=== PATIENT | male | born 1990 | race Caucasian/White ===

== ENCOUNTER 2021-07-23 10:00 | Emergency (ER) | payer MEDICAID, OTHER ==
[2021-07-23 10:38] LABS: BASOPHILS % (AUTO) 0.4 %; EOSINOPHILS # (AUTO) 0.1 10^3/uL (0.0-0.7); EOSINOPHILS % (AUTO) 1.9 %; HCT - HEMATOCRIT 40.9 % (42.0-52.0); HGB - HEMOGLOBIN 13.1 g/dL (14.0-18.0); LYMPHOCYTES # (AUTO) 1.6 10^3/uL (1.5-3.5); LYMPHOCYTES % (AUTO) 34.1 %; MEAN CORPUSCULAR HEMOGLOBIN 26.7 pg (27.0-31.0); MEAN CORPUSCULAR VOLUME 83.3 fL (80.0-94.0); MEAN PLATELET VOLUME 10.9 fL (7.4-11.4); MONOCYTES # (AUTO) 0.4 10^3/uL (0.0-1.0); MONOCYTES % (AUTO) 8.6 %; NEUTROPHILS # (AUTO) 2.6 10^3/uL (1.5-6.6); NEUTROPHILS % (AUTO) 54.8 %; PLT - PLATELET COUNT 235 10^3/uL (130-450); RED BLOOD COUNT 4.91 10^6/uL (4.70-6.10); RED CELL DISTRIBUTION WIDTH 12.8 % (12.0-15.0); WHITE BLOOD COUNT 4.8 x10^3/uL (4.8-10.8)
[2021-07-23 10:54] LABS: ALBUMIN 4.4 g/dL (3.2-5.5); ALBUMIN/GLOBULIN RATIO 1.5 (1.0-2.2); BILIRUBIN,TOTAL 1.2 mg/dL (0.2-1.0); CREATININE 0.9 mg/dL (0.6-1.2); TOTAL PROTEIN 7.3 g/dL (6.7-8.2)
--- NOTE | 2021-07-23 10:56 | XRAY Report ---
PROCEDURE: Chest 1 View X-Ray INDICATIONS: Chest Pain TECHNIQUE: One view of the chest was acquired. COMPARISON: None FINDINGS: Surgical changes and devices: None. Lungs and pleura: No pleural effusions or pneumothorax. Lungs are clear. Mediastinum: Mediastinal contours appear normal. Heart size is normal. Bones and chest wall: No suspicious bony lesions. Overlying soft tissues appear unremarkable. IMPRESSION: No evidence acute pulmonary process. Reviewed by: Albino Chow MD on 07/23/2021 10:55 AM PDT Approved by: Albino Chow MD on 07/23/2021 10:55 AM PDT Station ID: [id number]
[2021-07-23 11:24] VITALS: BP 117/67
--- NOTE | 2021-07-23 11:31 | ED Physician Documentation ---
PD HPI CHEST PAIN - Stated complaint Stated Complaint: CHEST PX - Chief complaint Chief Complaint: Cardiac - History obtained from History obtained from: Patient - History of Present Illness Timing - onset: Today Timing - onset during: Sleep Timing - duration: Days (1) Pain level max: 6 Pain level now: 3 Quality: Pressure, Sharp Location: Substernal Radiation: No: Jaw, Neck, Back, Abdominal, Left upper extremity, Right upper extremity Associated symptoms: No: Shortness of air, Diaphoresis, Nausea, Vomiting, Feeling faint / dizzy, General Weakness, Palpitations, Cough Similar symptoms before: Has not had sx before - Additional information Additional information: Patient is a 30-year-old male who presents to the emergency department stating that he developed pain in the center of his chest last night, worse with movement, worse with breathing. Described as sharp with palpation, otherwise a dull aching pressure. Nonradiating. 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 No recent travel. No recent surgery. No fever. Review of Systems Constitutional: denies: Fever, Chills Throat: denies: Sore throat Cardiac: denies: Palpitations Respiratory: denies: Dyspnea GI: denies: Abdominal Pain, Nausea, Vomiting, Diarrhea Skin: denies: Rash Musculoskeletal: denies: Neck pain, Back pain Neurologic: denies: Headache PD PAST MEDICAL HISTORY - Past Medical History Past Medical History: Yes Other Past Medical History: chronic uvula/tonsillar pain for several years. - Past Surgical History Past Surgical History: No - Present Medications Home Medications: Ambulatory Orders Medication Instructions Recorded Confirmed No Known Home Medications 07/23/21 07/23/21 - Allergies Allergies/Adverse Reactions: Allergies Allergy/AdvReac Type Severity Reaction Status Date / Time acetaminophen Allergy Hives Verified 07/23/21 10:07 Fish Containing Products Allergy Edema Verified 07/23/21 10:08 - Social History Does the pt smoke?: No Smoking Status: Never smoker Does the pt drink ETOH?: No Substance Use and Type: Marijuana PD ED PE NORMAL - Vitals Vital signs reviewed: Yes - General General: Alert and oriented X 3, No acute distress - HEENT HEENT: Moist mucous membranes - Neck Neck: Supple, no meningeal sign - Cardiac Cardiac: RRR, Strong equal pulses - Respiratory Respiratory: No respiratory distress, Clear bilaterally - Abdomen Abdomen: Soft, Non tender, Non distended - Derm Derm: Warm and dry - Extremities Extremities: No edema, No calf tenderness / cord - Neuro Neuro: Alert and oriented X 3 - Psych Psych: Normal mood, Normal affect Results - Vitals Vitals: Vital Signs - 24 hr 07/23/21 07/23/21 07/23/21 10:03 10:30 11:00 Temperature 36.2 C L Heart Rate 68 63 58 L Respiratory 16 16 16 Rate Blood Pressure 141/89 H 113/76 117/67 O2 Saturation 100 98 98 Oxygen O2 Source Room air - EKG (time done) 1011 Rate: Rate (enter#) (63) Rhythm: NSR [place]: Normal Intervals: Normal [place] QRS: Normal Ischemia: Normal ST segments - Labs Labs: Laboratory Tests 07/23/21 07/23/21 07/23/21 10:33 10:33 10:33 WBC 4.8 RBC 4.91 Hgb 13.1 L Hct 40.9 L MCV 83.3 MCH 26.7 L MCHC 32.0 RDW 12.8 Plt Count 235 MPV 10.9 Neut # (Auto) 2.6 Lymph # (Auto) 1.6 [place] # (Auto) 0.4 Eos # (Auto) 0.1 Baso # (Auto) 0.0 Absolute Nucleated RBC 0.00 Nucleated RBC % 0.0 Sodium 136 Potassium 4.0 Chloride 101 Carbon Dioxide 25 Anion Gap 10.0 BUN 15 Creatinine 0.9 Estimated GFR (MDRD) 100 Glucose 100 Calcium 9.0 Total Bilirubin 1.2 H AST 21 ALT 16 Alkaline Phosphatase 62 Troponin I High Sens < 2.3 L Total Protein 7.3 Albumin 4.4 Globulin 2.9 Albumin/Globulin Ratio 1.5 Lipase 28 - Rads (name of study) cxr Radiology: Final report received, EMP read contemporaneously, See rad report (No acute abnormality) PD MEDICAL DECISION MAKING - ED course Complexity details: reviewed results, re-evaluated patient, considered differential (No ST elevation [place], no aortic dissection, no PE, no tension pneumothorax, no aortic aneurysm), d/w patient ED course: 30-year-old male presents to the emergency department with chest pain. Appears to be musculoskeletal. Reproducible with palpation. Reproducible with movement. No acute findings on EKG, laboratory testing or chest x-ray. No risk factor for PE. We will continue supportive care and have him follow-up with his doctor. Patient counseled regarding signs and symptoms for which I believe and urgent re-evaluation would be necessary. Patient with good understanding of and agreement to plan and is comfortable going home at this time This document was made in part using voice recognition software. While efforts are made to proofread this document, sound alike and grammatical errors may occur. Departure - Departure Disposition: 01 Home, Self Care Clinical Impression: Chest wall pain Condition: Good Instructions: ED Chest Pain Atypical Unkn Cause, ED Chest Pain Costochondritis Follow-Up: your,doctor in 1 week [Other] Comments: Use Motrin as needed for pain. Follow-up with your doctor for further care. Return if you worsen.
== END 2021-07-23 11:49 | disposition home or self-care (01) ==
LOC: ED 10:00
DX: R07.89 Other chest pain (principal); Z03.818 Encounter for observation for suspected exposure to other biological agents ruled out
CPT/HCPCS: 36415; 80053; 83690; 84484; 85025; 93005; 99284

== ENCOUNTER 2022-09-27 11:44 | Emergency (ER) | payer OTHER ==
[2022-09-27 13:40] LABS: BASOPHILS % (AUTO) 0.3 %; EOSINOPHILS # (AUTO) 0.1 10^3/uL (0.0-0.7); EOSINOPHILS % (AUTO) 0.9 %; HGB - HEMOGLOBIN 14.5 g/dL (14.0-18.0); LYMPHOCYTES # (AUTO) 1.3 10^3/uL (1.5-3.5); LYMPHOCYTES % (AUTO) 22.1 %; MEAN CORPUSCULAR HEMOGLOBIN 28.9 pg (27.0-31.0); MEAN CORPUSCULAR HGB CONC 33.7 g/dL (32.0-36.0); MEAN CORPUSCULAR VOLUME 85.8 fL (80.0-94.0); MEAN PLATELET VOLUME 10.8 fL (7.4-11.4); MONOCYTES # (AUTO) 0.5 10^3/uL (0.0-1.0); MONOCYTES % (AUTO) 9.2 %; NEUTROPHILS # (AUTO) 3.9 10^3/uL (1.5-6.6); NEUTROPHILS % (AUTO) 67.2 %; PLT - PLATELET COUNT 251 10^3/uL (130-450); RED BLOOD COUNT 5.01 10^6/uL (4.70-6.10); RED CELL DISTRIBUTION WIDTH 12.2 % (12.0-15.0); WHITE BLOOD COUNT 5.9 x10^3/uL (4.8-10.8)
--- NOTE | 2022-09-27 13:52 | ED Physician Documentation ---
PD HPI GI BLEED - Stated complaint Stated Complaint: MALE GI - Chief complaint Chief Complaint: Abd Pain - History obtained from History obtained from: Patient - Additional information Additional information: The patient comes emergency department with chief complaint of bright red blood per rectum intermittently for the last year after being diagnosed with hemorrhoids. The patient states the bleeding usually starts after he has his bowel movement in the morning and sometimes stops quickly and other times, continues on and soaks through his underwear and pants. The patient states he is ruined most of his close because of this. He has not been seen anytime recently for the hemorrhoids. He at one time was on Anusol HC suppositories which he said did help, but then he ran out and never went and got anymore. The patient states that he is here today because he had bleeding lasting longer than usual and he is just frustrated that this keeps going on. He denies any lightheadedness, shortness of breath, or chest pain. He denies any coagulation disorders. No anal or rectal trauma. The patient's other concern is that he feels that because of the hemorrhoid, his anus does not seal properly, so sometimes he will have leakage of fluid from his anus onto his underwear. The patient states that right now, he is having a panic attack because he hates coming to the doctor and because he is so scared about the bleeding. No other complaints at this time. Review of Systems Ten Systems: 10 systems reviewed and negative Constitutional: reports: Reviewed and negative Eyes: reports: Reviewed and negative Ears: reports: Reviewed and negative Nose: reports: Reviewed and negative Throat: reports: Reviewed and negative Cardiac: reports: Reviewed and negative Respiratory: reports: Reviewed and negative GI: reports: Bloody / black stool. denies: Abdominal Pain : reports: Reviewed and negative Skin: reports: Reviewed and negative Musculoskeletal: reports: Reviewed and negative Neurologic: reports: Reviewed and negative Psychiatric: reports: Reviewed and negative Endocrine: reports: Reviewed and negative Immunocompromised: reports: Reviewed and negative PD PAST MEDICAL HISTORY - Past Surgical History Past Surgical History: No - Present Medications Home Medications: Ambulatory Orders Medication Instructions Recorded Confirmed HYDROcod/ACETAM 5/325 [[place] 5/325] 1 - 2 tablet PO Q6H PRN #14 tablet 09/27/22 Hydrocortisone Supp [Anusol-Hc] 25 mg [place] Q12H PRN #60 supp 09/27/22 - Allergies Allergies/Adverse Reactions: Allergies Allergy/AdvReac Type Severity Reaction Status Date / Time acetaminophen Allergy Hives Verified 09/27/22 11:59 Fish Containing Products Allergy Edema Verified 09/27/22 11:59 - Social History Does the pt smoke?: No Smoking Status: Never smoker Does the pt drink ETOH?: No PD ED PE NORMAL - Vitals Vital signs reviewed: Yes - General General: Alert and oriented X 3, Well developed/nourished, Other (The patient is visibly anxious, hyperventilating and shaking, pacing in the room.) - HEENT HEENT: Atraumatic, PERRL, EOMI, Moist mucous membranes - Neck Neck: Supple, no meningeal sign - Respiratory Respiratory: No respiratory distress - Abdomen Abdomen: Soft, Non tender, Non distended - Rectal Rectal: Other (1 moderately sized external hemorrhoid and one small 1 noted. There is fresh bloody residue without obvious active bleeding. Moderate tenderness to palpation of the larger hemorrhoid and with digital rectal exam.) - Derm Derm: Normal color, Warm and dry, No rash - Extremities Extremities: No deformity - Neuro Neuro: Alert and oriented X 3 - Psych Psych: Normal mood, Normal affect Results - Vitals Vitals: Vital Signs - 24 hr 09/27/22 09/27/22 11:57 14:04 Temperature 36.8 C 36.6 C Heart Rate 105 H 98 Respiratory 16 16 Rate Blood Pressure 153/113 H 148/87 H O2 Saturation 98 100 Oxygen O2 Source Room air - Labs Labs: Laboratory Tests 09/27/22 13:36 WBC 5.9 RBC 5.01 Hgb 14.5 Hct 43.0 MCV 85.8 MCH 28.9 MCHC 33.7 RDW 12.2 Plt Count 251 MPV 10.8 Neut # (Auto) 3.9 Lymph # (Auto) 1.3 L [place] # (Auto) 0.5 Eos # (Auto) 0.1 Baso # (Auto) 0.0 Absolute Nucleated RBC 0.00 Nucleated RBC % 0.0 PD MEDICAL DECISION MAKING - ED course Complexity details: reviewed results, re-evaluated patient, considered differential, d/w patient ED course: I discussed with the patient that he does not appear to have a significant amount of bleeding at this time. He has shown me his Clothes and he has an Approximately 4 cm x 8 cm spot of blood on both the underwear and the jeans. I discussed with the patient that his H&H are Normal and that I do not find any evidence ofSignificant blood loss. Departure - Departure Disposition: 01 Home, Self Care Clinical Impression: Hematochezia Hemorrhoids Qualifiers: Hemorrhoid type: unspecified Qualified Code(s): K64.9 - Unspecified hemorrhoids Condition: Stable Instructions: ED Hemorrhoids Follow-Up: Aman Rogers MD [Provider Admit Priv/Credential] - Prescriptions: Hydrocortisone Supp [Anusol-Hc] 25 mg [place] Q12H PRN #60 supp PRN Reason: Hemorrhoids HYDROcod/ACETAM 5/325 [[place] 5/325] 1 - 2 tablet PO Q6H PRN #14 tablet PRN Reason: Pain Comments: Your labs are completely normal, and your red blood cell levels are well within the normal range. There is no evidence that you have lost a significant amount of blood from the hemorrhoids. A prescription for the hemorrhoid suppositories and pain meds has been electronically transmitted to [facility] pharmacy, your pharmacy of choice on record. You may follow-up with our surgical clinic to discuss whether you would like to have your hemorrhoids clipped. There are pros and cons to this and the surgeon is the one best equipped to discuss these with you. In the meantime, please try not to remain on the toilet if you have finished having a bowel movement for the time. If you still feel the urge but nothing is coming out, get up so that you do not cause excessive pressure in the vasculature around your anus. This will help to relieve some of the strain on the hemorrhoids. Please also be sure To eat a high-fiber diet so that you are stools are soft and easy to get out. If you continue to have panic attacks when you see the blood, please speak with your primary doctor. To put it in perspective and to help ease your anxiety, please bear in mind that the amount of bleeding you are doing is about equivalent to the monthly bleeding that females do on their periods, and this is well able to be handled by the body. If you are bleeding heavily and cannot get it to stop at all, meaning that you have soaked down the legs of your pants, or if you start feeling very lightheaded or have chest pain or shortness of breath in the setting of bleeding please return to the emergency department. Otherwise, please follow-up as zan chairez.
[2022-09-27 14:05] VITALS: BP 148/87
== END 2022-09-27 14:20 | disposition home or self-care (01) ==
LOC: ED 11:44
DX: K92.1 Melena (principal); K64.9 Unspecified hemorrhoids
CPT/HCPCS: 36415; 80053; 83690; 85025; 99282; 99283

== ENCOUNTER 2023-11-16 14:48 | Emergency (ER) | payer OTHER ==
[2023-11-16 14:56] VITALS: BP 146/90; O2SAT 100
--- NOTE | 2023-11-16 15:39 | Ultrasound Report ---
PROCEDURE: Duplex Ext Veins Left INDICATIONS: pain TECHNIQUE: Real-time imaging, as well as color and pulse Doppler interrogation, were performed of the lower extr emity deep veins from the inguinal ligament to the popliteal fossa. Attempted visualization of the ca lf veins was performed. COMPARISON: None. FINDINGS: The deep veins are normally compressible, and free of intraluminal thrombus. Color and pu lse Doppler demonstrate normal phasic intraluminal flow. There is normal augmentation response to di stal compression maneuver. IMPRESSION: No deep venous thrombosis of the visualized lower extremity. Reviewed by: Arie Sal MD on 11/16/2023 3:37 PM PST Approved by: Arie Sal MD on 11/16/2023 3:37 PM [facility] Station ID: [id number]
--- NOTE | 2023-11-16 15:49 | ED Physician Documentation ---
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 He states that over the past 2 days he has noticed that has been hard. Tender to palpation. No redness. No other lower extremity swelling, pain, tenderness. Not on blood thinners. Worse with palpation, better with rest. Review of Systems Constitutional: denies: Fever Cardiac: denies: Chest pain / pressure Respiratory: denies: Dyspnea GI: denies: Abdominal Pain, Vomiting, Diarrhea Skin: denies: Rash Musculoskeletal: denies: Neck pain, Back pain Neurologic: denies: Headache PD PAST MEDICAL HISTORY - Past Medical History Past Medical History: No Cardiovascular: None Respiratory: None Neuro: None Endocrine/Autoimmune: None GI: None : None HEENT: None Psych: None Musculoskeletal: None Derm: None - Past Surgical History Past Surgical History: No - Present Medications Home Medications: Ambulatory Orders Medication Instructions Recorded Confirmed HYDROcod/ACETAM 5/325 [[place] 5/325] 1 - 2 tablet PO Q6H PRN #14 tablet 09/27/22 Hydrocortisone Supp [Anusol-Hc] 25 mg [place] Q12H PRN #60 supp 09/27/22 - Allergies Allergies/Adverse Reactions: Allergies Allergy/AdvReac Type Severity Reaction Status Date / Time acetaminophen Allergy Hives Verified 11/16/23 14:50 Fish Containing Products Allergy Edema Verified 11/16/23 14:50 - Social History Does the pt smoke?: No Smoking Status: Never smoker Does the pt drink ETOH?: No Does the pt have substance abuse?: No - Immunizations Immunizations are current?: Yes PD ED PE NORMAL - Vitals Vital signs reviewed: Yes - General General: Alert and oriented X 3, No acute distress - HEENT HEENT: Moist mucous membranes - Respiratory Respiratory: No respiratory distress - Derm Derm: Warm and dry - Extremities Extremities: Other (Left lower extremity has a small 2 cm palpable vein consistent with varicose vein. There is tenderness over the vein. No redness. No streaking.) - Neuro Neuro: Alert and oriented X 3 Results - Vitals Vitals: Vital Signs - 24 hr 11/16/23 14:50 Temperature 36.8 C Heart Rate 88 Respiratory 16 Rate Blood Pressure 146/90 H O2 Saturation 100 Oxygen O2 Source Room air - Rads (name of study) Duplex ultrasound left lower extremity Relevant Findings:: Final report received, See rad report PD Medical Decision Making - ED course Complexity details: reviewed results, considered differential, d/w patient ED course: 32-year-old male with a uncomplicated superficial thrombophlebitis of the left lower extremity. No evidence of DVT on ultrasound. Will treat conservatively, warm compresses and anti-inflammatories. Patient counseled regarding signs and symptoms for which I believe and urgent re-evaluation would be necessary. Patient with good understanding of and agreement to plan and is comfortable going home at this time This document was made in part using voice recognition software. While efforts are made to proofread this document, sound alike and grammatical errors may occur. Departure - Departure Disposition: 01 Home, Self Care Clinical Impression: Superficial thrombophlebitis Qualifiers: Superficial thrombophlebitis-Involved body area: upper extremity Laterality: unspecified laterality Qualified Code(s): I80.8 - Phlebitis and thrombophlebitis of other sites Condition: Good Instructions: ED Phlebitis Superficial Follow-Up: your,doctor as needed [Other] Comments: You have a superficial venous thrombophlebitis of the left lower extremity. This will resolve on its own. You can apply warm compresses to the area as well as take anti-inflammatory such as Motrin, ibuprofen or Aleve. These do not need to be anticoagulated and do not cause issues such as strokes and blood clots in the lungs. PROCEDURE: Duplex Ext Veins Left INDICATIONS: pain TECHNIQUE: Real-time imaging, as well as color and pulse Doppler interrogation, were performed of the lower extremity deep veins from the inguinal ligament to the popliteal fossa. Attempted visualization of the calf veins was performed. COMPARISON: None. FINDINGS: The deep veins are normally compressible, and free of intraluminal thrombus. Color and pulse Doppler demonstrate normal phasic intraluminal flow. There is normal augmentation response to distal compression maneuver. IMPRESSION: No deep venous thrombosis of the visualized lower extremity. Forms: PCP List Discharge Date/Time: 11/16/23 16:00
== END 2023-11-16 16:00 | disposition home or self-care (01) ==
LOC: ED 14:48
DX: I80.8 Phlebitis and thrombophlebitis of other sites (principal)
CPT/HCPCS: 99283; 99284

== ENCOUNTER 2023-11-27 13:42 | Emergency (ER) | payer OTHER ==
[2023-11-27] MEDS ORDERED: BUFFERED LIDOCAINE 10 ML SYRINGE SUBQ STA (14:00)
--- NOTE | 2023-11-27 14:02 | ED Physician Documentation ---
PD HPI UPPER EXT INJURY - Stated complaint Stated Complaint: LT FINGER LAC - Chief complaint Chief Complaint: Laceration - History obtained from History obtained from: Patient - Additonal information Additional information: Patient is a 32-year-old male With a laceration to his left index finger that o ccurred just prior to arrival. Patient was cutting something for work. He is on Xarelto for history of a superficial venous thrombus. He reports he was getting worse so the vascular surgeon put him on a blood thinner which she is only been on for 4 days. Patient's last tetanus is in 2020. He is right-hand dominant. Review of Systems Constitutional: denies: Fever Cardiac: denies: Chest pain / pressure Respiratory: denies: Dyspnea Skin: reports: Laceration (s) Musculoskeletal: reports: Extremity pain PD PAST MEDICAL HISTORY - Past Medical History Past Medical History: Yes Cardiovascular: None Respiratory: None Neuro: None Endocrine/Autoimmune: None GI: None : None HEENT: None Psych: None Musculoskeletal: None Derm: None - Past Surgical History Past Surgical History: No - Present Medications Home Medications: Ambulatory Orders Medication Instructions Recorded Confirmed HYDROcod/ACETAM 5/325 [[place] 5/325] 1 - 2 tablet PO Q6H PRN #14 tablet 09/27/22 Hydrocortisone Supp [Anusol-Hc] 25 mg [place] Q12H PRN #60 supp 09/27/22 - Allergies Allergies/Adverse Reactions: Allergies Allergy/AdvReac Type Severity Reaction Status Date / Time acetaminophen Allergy Hives Verified 11/27/23 13:48 Fish Containing Products Allergy Edema Verified 11/27/23 13:48 - Social History Does the pt smoke?: No Smoking Status: Never smoker Does the pt drink ETOH?: No Does the pt have substance abuse?: No - Immunizations Immunizations are current?: Yes PD ED PE NORMAL - General General: Alert and oriented X 3, No acute distress, Well developed/nourished - HEENT HEENT: Atraumatic - Neck Neck: Supple, no meningeal sign - Cardiac Cardiac: Strong equal pulses - Respiratory Respiratory: No respiratory distress - Extremities Extremities: Other (Laceration to distal left index finger, normal range of motion at joint,) - Neuro Neuro: No motor deficit, No sensory deficit PD ED PE EXPANDED - Extremities LESVIA UE/Hands Visual: 1 - laceration 2 - laceration Results - Vitals Vitals: Vital Signs - 24 hr 11/27/23 11/27/23 13:48 15:52 Temperature 36.8 C Heart Rate 100 76 Respiratory 20 12 Rate Blood Pressure 129/82 H 114/74 O2 Saturation 98 96 Oxygen O2 Source Room air Procedures - Laceration (location) L index Length in cm: 2 Wound type: Curved, Clean Neurovascular status: Sensory intact, Motor intact, Vascular intact Tendon involvement: Tendon intact Anesthesia: Lidocaine 1% Wound preparation: Hibiclens, Irrigated copiously NS Skin layer closure: Size #-0 - enter number (4-0), Sutures - enter # (9) Other: Patient tolerated well, No complications, Neurovascular intact, Dressing applied, Tetanus UTD PD Medical Decision Making - ED course ED course: Patient with a laceration to his left index finger that occurred a from a blade at work. He is on Xarelto for a superficial venous thrombus. His tetanus is up-to-date. Wound was copiously irrigated and cleaned. There is no signs of tendon injury. Wound was sutured closed with good hemostasis. Dressing was applied. Patient counseled on need to return for suture removal as well as concerning symptoms to return for. Departure - Departure Disposition: 01 Home, Self Care Clinical Impression: Laceration of left index finger Condition: Stable Instructions: ED Laceration Ext Sutr Stap Tape Comments: You were treated for a laceration to your left index finger. I have placed 9 stitches into this wound. These should stay in for 14 days. You can return to the ER to have them removed. You can resume your blood thinner but I would not take the next dose until this evening. Return to the ER with any concerns such as bleeding or concerns for infection. Forms: PCP List
[2023-11-27] MEDS ORDERED: BACITRACIN ZINC OINT 1 PACKET TOP STA (15:38)
[2023-11-27 15:58] VITALS: BP 114/74; O2SAT 96
== END 2023-11-27 15:30 | disposition home or self-care (01) ==
LOC: ED 13:42
DX: S61.211A Laceration without foreign body of left index finger without damage to nail, initial encounter (principal); W29.8XXA Contact with other powered hand tools and household machinery, initial encounter; Y99.0 Civilian activity done for income or pay; Z86.718 Personal history of other venous thrombosis and embolism; Z79.01 Long term (current) use of anticoagulants
CPT/HCPCS: 1040M; 12001; 99282; A9270

== ENCOUNTER 2023-12-11 13:46 | Emergency (ER) | payer OTHER ==
[2023-12-11 14:01] VITALS: BP 126/75; O2SAT 99
--- NOTE | 2023-12-11 14:11 | ED Physician Documentation ---
PD HPI UPPER EXT INJURY - Stated complaint Stated Complaint: STITCHES REMOVAL - Chief complaint Chief Complaint: Laceration - History obtained from History obtained from: Patient (He was here for a finger laceration of the left index finger and had 9 sutures placed about 14 days ago and is here for suture removal. He has not had any trouble.) PD PAST MEDICAL HISTORY - Past Medical History Past Medical History: Yes Cardiovascular: Deep vein thrombosis Respiratory: None Neuro: None Endocrine/Autoimmune: None GI: None : None HEENT: None Psych: Anxiety Musculoskeletal: None Derm: None - Past Surgical History Past Surgical History: No - Present Medications Home Medications: Ambulatory Orders Medication Instructions Recorded Confirmed HYDROcod/ACETAM 5/325 [Blunt 5/325] 1 - 2 tablet PO Q6H PRN #14 tablet 09/27/22 Hydrocortisone Supp [Anusol-Hc] 25 mg [place] Q12H PRN #60 supp 09/27/22 - Allergies Allergies/Adverse Reactions: Allergies Allergy/AdvReac Type Severity Reaction Status Date / Time acetaminophen Allergy Hives Verified 12/11/23 13:55 Fish Containing Products Allergy Edema Verified 12/11/23 13:55 - Social History Does the pt smoke?: No Smoking Status: Never smoker Does the pt drink ETOH?: No Does the pt have substance abuse?: No Substance Use and Type: Marijuana - Immunizations Immunizations are current?: Yes - POLST Patient has POLST: No PD ED PE NORMAL - Vitals Vital signs reviewed: Yes - General General: Alert and oriented X 3, No acute distress - Extremities Extremities: Other (Healing sutured wound to the pulp of the left index finger clean dry and intact without signs of dehiscence or infection. Sutures removed without issue by me.) - Neuro Neuro: Alert and oriented X 3, Normal speech Results - Vitals Vitals: Vital Signs - 24 hr 12/11/23 13:56 Temperature 36.1 C L Heart Rate 96 Respiratory 16 Rate Blood Pressure 126/75 O2 Saturation 99 Oxygen O2 Source Room air Departure - Departure Disposition: 01 Home, Self Care Clinical Impression: Visit for suture removal Instructions: ED Wound Check Sutr Remove No Infec
== END 2023-12-11 14:19 | disposition home or self-care (01) ==
LOC: ED 13:46
DX: Z48.02 Encounter for removal of sutures (principal); Z86.718 Personal history of other venous thrombosis and embolism
CPT/HCPCS: 99281; 99282

== ENCOUNTER 2024-03-26 22:53 | Emergency (ER) | payer OTHER ==
[2024-03-26 23:16] LABS: BASOPHILS % (AUTO) 0.4 %; EOSINOPHILS # (AUTO) 0.1 10^3/uL (0.0-0.7); EOSINOPHILS % (AUTO) 1.6 %; HCT - HEMATOCRIT 45.8 % (42.0-52.0); HGB - HEMOGLOBIN 15.2 g/dL (14.0-18.0); LYMPHOCYTES # (AUTO) 2.1 10^3/uL (1.5-3.5); LYMPHOCYTES % (AUTO) 27.2 %; MEAN CORPUSCULAR HEMOGLOBIN 28.1 pg (27.0-31.0); MEAN CORPUSCULAR HGB CONC 33.2 g/dL (32.0-36.0); MEAN CORPUSCULAR VOLUME 84.8 fL (80.0-94.0); MEAN PLATELET VOLUME 11.2 fL (7.4-11.4); MONOCYTES # (AUTO) 0.6 10^3/uL (0.0-1.0); MONOCYTES % (AUTO) 7.3 %; NEUTROPHILS # (AUTO) 4.8 10^3/uL (1.5-6.6); NEUTROPHILS % (AUTO) 63.2 %; PLT - PLATELET COUNT 259 10^3/uL (130-450); RED CELL DISTRIBUTION WIDTH 11.9 % (12.0-15.0); WHITE BLOOD COUNT 7.7 x10^3/uL (4.8-10.8)
[2024-03-26 23:34] LABS: ALBUMIN 4.7 g/dL (3.2-5.5); ALBUMIN/GLOBULIN RATIO 2.9 (1.0-2.2); ALKALINE PHOSPHATASE 63 IU/L (42-121); ALT ALANINE AMINOTRANSFERASE 46 IU/L (10-60); AST ASPARTATE AMINOTRANSFERASE 26 IU/L (10-42); BILIRUBIN,TOTAL 0.6 mg/dL (0.2-1.0); BUN - BLOOD UREA NITROGEN 19 mg/dL (6-20); CARBON DIOXIDE - CO2 28 mmol/L (21-32); CHLORIDE 104 mmol/L (101-111); CREATININE 1.1 mg/dL (0.6-1.3); GFR - MDRD 78 (>89); GLUCOSE 116 mg/dL (74-104); POTASSIUM 3.5 mmol/L (3.5-4.5); SODIUM 134 mmol/L (135-145); TOTAL PROTEIN 6.3 g/dL (6.4-8.9)
[2024-03-26 23:36] LABS: TROPONIN I HIGH SENSITIVITY < 2.3 ng/L (2.3-19.7)
--- NOTE | 2024-03-26 23:39 | XRAY Report ---
PROCEDURE: Chest 2V INDICATIONS: chest pain TECHNIQUE: 2 views of the chest were acquired. COMPARISON: None. FINDINGS: Surgical changes and devices: None. Lungs and pleura: No pleural effusions or pneumothorax. Lungs are clear. Mediastinum: Mediastinal contours appear normal. Heart size is normal. Bones and chest wall: No suspicious bony lesions. Overlying soft tissues appear unremarkable. IMPRESSION: No acute cardiopulmonary process. Reviewed by: Austin Gallo MD on 03/26/2024 11:37 PM PDT Approved by: Austin Gallo MD on 03/26/2024 11:37 PM PDT Station ID: [id number]
--- NOTE | 2024-03-27 00:21 | ED Physician Documentation ---
PD HPI CHEST PAIN - Stated complaint Stated Complaint: CHEST/L ARM PX - Chief complaint Chief Complaint: Cardiac - History obtained from History obtained from: Patient - Additional information Additional information: HPI from patient. Patient complains of left upper extremity aching pain without inciting event. The pain has been episodic and increasing in frequency and intensity, coming associated over the past 2 days with chest pain that is left parasternal as well as left low anteromedial chest. Denies dyspnea at rest but noted some dyspnea on exertion (when climbing up stairs) earlier today. There is a partial component of the chest pain that is pleuritic (worse with deep inspiration). Denies cough, fever. Denies history of similar symptoms. On review of systems, patient says he recently had right ankle swelling that was unprovoked but resolved. He says he was diagnosed with a superficial venous thrombosis of the left lower extremity approximately 6 months ago and was put on 1 month of Xarelto. He says the signs/symptoms of the superficial venous thrombosis have resolved. Review of Systems Constitutional: denies: Fever, Chills, Sweats Cardiac: reports: Chest pain / pressure. denies: Palpitations Respiratory: reports: Dyspnea. denies: Cough, Hemoptysis, Wheezing GI: reports: Reviewed and negative PD PAST MEDICAL HISTORY - Past Medical History Cardiovascular: Deep vein thrombosis Respiratory: None Neuro: None Endocrine/Autoimmune: None GI: None : None HEENT: None Psych: Anxiety Musculoskeletal: None Derm: None - Past Surgical History Past Surgical History: No - Present Medications Home Medications: Ambulatory Orders Medication Instructions Recorded Confirmed HYDROcod/ACETAM 5/325 [[place] 5/325] 1 - 2 tablet PO Q6H PRN #14 tablet 09/27/22 Hydrocortisone Supp [Anusol-Hc] 25 mg [place] Q12H PRN #60 supp 09/27/22 - Allergies Allergies/Adverse Reactions: Allergies Allergy/AdvReac Type Severity Reaction Status Date / Time acetaminophen Allergy Hives Verified 03/26/24 23:15 Fish Containing Products Allergy Edema Verified 03/26/24 23:15 - Social History Does the pt smoke?: No Smoking Status: Never smoker Does the pt drink ETOH?: No Does the pt have substance abuse?: No - Immunizations Immunizations are current?: Yes - POLST Patient has POLST: No PD ED PE NORMAL - Vitals Vital signs reviewed: Yes - General General: Alert and oriented X 3, No acute distress, Well developed/nourished - Cardiac Cardiac: RRR, No murmur, No gallop, No rub - Respiratory Respiratory: No respiratory distress, Clear bilaterally - Abdomen Abdomen: Soft, Non tender - Derm Derm: Normal color, Warm and dry - Extremities Extremities: No edema Results - Vitals Vitals: Vital Signs - 24 hr 03/27/24 03/27/24 01:54 02:30 Heart Rate 76 77 Respiratory 16 16 Rate Blood Pressure 114/74 134/85 H O2 Saturation 99 99 Oxygen O2 Source Room air - EKG (time done) No standard instances EKG releavant findings:: EKG personally interpreted by author of this note. Relevant findings are: Rate: Rate (enter#) (85) Rhythm: NSR [place]: Normal Intervals: Normal [place] QRS: Normal Ischemia: Normal ST segments - Labs Labs: Laboratory Tests 03/26/24 03/26/24 23:12 23:12 WBC 7.7 RBC 5.40 Hgb 15.2 Hct 45.8 MCV 84.8 MCH 28.1 MCHC 33.2 RDW 11.9 L Plt Count 259 MPV 11.2 Neut # (Auto) 4.8 Lymph # (Auto) 2.1 Gregory # (Auto) 0.6 Eos # (Auto) 0.1 Baso # (Auto) 0.0 Absolute Nucleated RBC 0.00 Nucleated RBC % 0.0 Sodium 134 L Potassium 3.5 Chloride 104 Carbon Dioxide 28 Anion Gap 2.0 L BUN 19 Creatinine 1.1 Estimated GFR (MDRD) 78 L Glucose 116 H Calcium 10.0 Total Bilirubin 0.6 AST 26 ALT 46 Alkaline Phosphatase 63 Troponin I High Sens < 2.3 L Total Protein 6.3 L Albumin 4.7 Globulin 1.6 L Albumin/Globulin Ratio 2.9 H - Rads (name of study) chest xray Relevant Findings:: Prelim report reviewed, See rad report CTA chest Relevant Findings:: Prelim report reviewed, See rad report PD Medical Decision Making - ED course Complexity details: reviewed results, re-evaluated patient, considered differential, d/w patient ED course: Normal CBC (except insignificant/noncontributory finding of low RDW), normal ER abdominal panel except noncontributory/insignificant findings of minimal hyponatremia (sodium 134) , glucose 116. Normal hs-cTn (<2.3). Normal CXR. Given pleuritic component of the chest pain and h/o LLE superficial thrombophlebitis, CTA chest undertaken; there is no abnormality on this study including no evidence of PE, aortic abnormality. Etiology of symptoms is not apparent at this time. Results d/w patient, return precautions reviewed, advised to contact PCP to arrange for next available appointment for reevaluation/follow-up. Departure - Departure Disposition: 01 Home, Self Care Clinical Impression: Chest pain Condition: Good Instructions: ED Chest Pain Atypical Unkn Cause Comments: There were no concerning nor diagnostic findings on tonight's test, including the EKG, blood test, chest x-ray, and the CT scan of your chest. The cause of your symptoms is not apparent at this time. Contact your primary care provider's office when they are next open to arrange for the next available appointment for reevaluation. Further testing might be needed even if your symptoms resolve. Discharge Date/Time: 03/27/24 02:34
[2024-03-27] MEDS ORDERED: iohexoL-300 100 ML VIAL ONE (01:07)
[2024-03-27] MEDS: iohexoL-300 100 ML VIAL IVP ONE (01:29)
--- NOTE | 2024-03-27 01:48 | CT Report ---
PROCEDURE: Angio Chest INDICATIONS: chest pain CONTRAST: Omni 300, 80mls TECHNIQUE: After the administration of intravenous contrast, 2 mm axial images were acquired from the pulmonary apices to the posterior costophrenic angles during the arterial phase. In addition, 1 mm lung kernel and 5 mm soft tissue kernel reconstructions were performed. 3-dimensional coronal oblique maximum int ensity projection (MIP) reformats, 8 mm axial MIP, and 5 mm coronal and sagittal MPR reformats were t hen performed through the thorax. For radiation dose reduction, the following was used: automated exp osure control, adjustment of mA and/or kV according to patient size. COMPARISON: None. FINDINGS: Image quality: Excellent. Large vessels: No filling defects within the opacified pulmonary arteries, accounting for motion and contrast timing. No evidence of acute aortic syndrome or aortic aneurysm. Lungs and pleura: No consolidation. No pleural effusions. No pneumothorax. No suspicious pulmonary n odules which require follow up. Mediastinum: Heart size is normal. No pericardial effusion. No large vessel abnormality. No mediastin al adenopathy by size criteria. Chest wall and lower neck: Thyroid is unremarkable. No axillary or supraclavicular adenopathy by size . Bones: No aggressive osseous abnormality. Upper Abdomen: Unremarkable. IMPRESSION: No pulmonary embolus. No acute pulmonary process. No mediastinal or hilar lymphadenopathy. Reviewed by: Austin Gallo MD on 03/27/2024 1:46 AM PDT Approved by: Austin Gallo MD on 03/27/2024 1:46 AM PDT Station ID: [id number]
[2024-03-27 02:03] VITALS: O2SAT 99
[2024-03-27 02:34] VITALS: BP 134/85
== END 2024-03-27 02:34 | disposition home or self-care (01) ==
LOC: ED 22:53
DX: R07.9 Chest pain, unspecified (principal); Z86.718 Personal history of other venous thrombosis and embolism; Z79.01 Long term (current) use of anticoagulants
CPT/HCPCS: 36415; 71046; 71275; 80053; 84484; 85025; 93005; 99283; 99284; Q9967; 80048